=== PATIENT | female | born 1970 | race Caucasian/White ===

== ENCOUNTER 2017-02-09 16:54 | Day surgery (SDC) | payer OTHER ==
[~2017-02-09 16:54] MED LIST: HYDROCODONE/APAP 5/325 TAB PO SCH
[2017-02-09] MEDS ORDERED: NS 1,000 ML IV ONE ×2 (17:25→18:46)
--- NOTE | 2017-02-09 17:30 | EDPHY ---
General - History Smoking Status: Never smoked Narrative: CHIEF COMPLAINT: Right lower quadrant abdominal pain HISTORY OF PRESENT ILLNESS: Patient complains of sudden onset of right lower quadrant abdominal pain this afternoon after yoga. She says it started in the right lower back but now is present primarily in the right lower quadrant. It is severe, 10/10 pain. Worse with any kind of palpation or movement. Radiates to the abdomen and periumbilical region. Nausea but no vomiting. Subjective fever. No chills. No diaphoresis. She does endorse anorexia. She has no vaginal bleeding or discharge. No flank pain. No urinary complaints. No previous abdominal surgeries other than section. Does have a history of breast cancer currently taking tamoxifen. No other associated complaints or modifying factors. PREVIOUS ABDOMINAL SURGERIES/DIAGNOSES: NPO: Solids at 2:00 p.m., small sips a liquid just prior to arrival REVIEW OF SYSTEMS: Ten systems reviewed and are negative unless otherwise noted in the HPI EXAMINATION: General Appearance: Alert, no distress, lying on her left side in obvious discomfort Head: normocephalic, atraumatic Eyes: Pupils equal and round, no conjunctival pallor or injection. EOMs intact. ENT, Mouth: Mucous membranes moist. Uvula midline. No erythema or edema. Neck: Normal inspection, supple, non-tender. No meningismus. Respiratory: Lungs are clear to auscultation Cardiovascular: Regular rate and rhythm. no murmur Gastrointestinal: Abdomen is soft. Point tenderness in RLQ. Guarding of RLQ. Negative Rovsing. No tympany or rigidity. No CVA tenderness Back: non-tender, no bony abnormalities Neurological: A&O, nonfocal, normal gait Skin: Warm and dry, no rash Extremities: Nontender, no pedal edema Psychiatric: Mood and affect normal DIFFERENTIAL DIAGNOSES: Including but not limited to acute appendicitis, appendicitis, colitis, diverticulitis, torsion, ovarian cysts MDM: Right lower quadrant abdominal pain that started acutely this afternoon around 1 :30 p.m.. She does have guarding of the abdomen in the right lower quadrant. This does encroach upon to the pelvic region of the body. Given this and the severity of her pain, I have ordered CT scan abdomen pelvis as well as ultrasound to rule out torsion. 6:35 p.m. Notified by radiologist Dr. Nabor Bah that there is an acute torsion of the right ovary. Measurements of 9.1 x 6.1 x 5.7 with no flow. Scant fluid noted. I immediately contacted on-call translator/interpreter for emergent consultation 6:42 p.m. I have spoken with translator/interpreter Dr. Champion. She is informed of the ultrasound findings of acute torsion. She informed me that she will see the patient within 15 minutes in the emergency department. I have informed the patient of this ultrasound finding as well as our immediate involvement of Gynecology due to the emergent nature of this finding. She is resting comfortably with pain improving after the morphine. No vomiting. Vital signs stable laboratory studies are stable. 7:00 p.m. Patient has been evaluated by Dr. Champion in the emergency department. She is planning for operative intervention. She remains hemodynamically stable. 8:40 p.m. Patient is still in the emergency department awaiting surgical intervention. She remains hemodynamically stable. We have provided 2 L IV fluid resuscitation as well as ongoing pain medication as needed. She has been admitted to Dr. Champion. She is pending transportation to the OR ED Precautions: Worsening pain. Fever. Bloody stools. Bloody emesis. Constipation or diarrhea. SUPERVISION: This patient was independently evaluated without direct examination by the attending physician. Case was discussed with attending physician. Emergent OB Gyne consult with Dr. Champion (Rg Masters) Discussion: The patient wasevaluatedand managed by themidlevel provider. Idiscussed the patient's presentation and course with thephysicianassistantor nurse practitionerand agree with theevaluation. My co-signature indicates that I have reviewed this chart and I agree with the findings and plan of care as documented. I am the secondary supervisingphysician. (Kalyani Quijano) - Objective Vital Signs: Initial Vital Signs Temperature (C) 37 C 02/09/17 17:05 Heart Rate 77 02/09/17 17:05 Respiratory Rate 18 02/09/17 17:05 Blood Pressure 100/79 02/09/17 17:05 O2 Sat (%) 100 02/09/17 17:05 O2 Delivery Mode Room Air Allergies/Adverse Reactions: No Known Allergies Allergy (Verified 02/09/17 17:03) Home Medications: Medication Instructions Recorded Cholecalciferol Vit D3 [Vitamin D3 2,000 units PO DAILY 04/03/13 1000 units (OTC)] Herbals/Supplements -Info Only 1 each PO AD 04/03/13 Ibuprofen [Motrin 200 mg (OTC)] 400 mg PO BID PRN 04/03/13 Levothyroxine [Synthroid 75 mcg 75 mcg PO DAILY06 02/09/17 (*)] [place]-3 Fatty Acids [Fish Oil 1000 1,000 mg PO DAILY 02/09/17 mg (*)] Tamoxifen Citrate 20 mg PO HS 02/09/17 Laboratory Results: Laboratory Results 02/09/17 17:40 02/09/17 17:40 Medications Given: Discontinued Medications Hydromorphone HCl (Dilaudid) 0.5 mg IVP ONCE ONE Stop: 02/09/17 20:07 Last Admin: 02/09/17 20:24 Dose: 0.5 mg Hydromorphone HCl (Dilaudid) 0.5 mg IVP EDNOW ONE Stop: 02/09/17 20:10 Last Admin: 02/09/17 20:32 Dose: Not Given Sodium Chloride (Ns) 1,000 mls @ 0 mls/hr IV ONCE ONE PRN Reason: Wide Open Stop: 02/09/17 17:26 Last Admin: 02/09/17 17:57 Dose: 1,000 mls Sodium Chloride (Ns) 1,000 mls @ 0 mls/hr IV ONCE ONE PRN Reason: Wide Open Stop: 02/09/17 18:47 Last Admin: 02/09/17 18:58 Dose: 1,000 mls Morphine Sulfate (Morphine) 4 mg IVP EDNOW ONE Stop: 02/09/17 17:32 Last Admin: 02/09/17 17:57 Dose: 4 mg Ondansetron HCl (Zofran) 4 mg IVP EDNOW ONE Stop: 02/09/17 17:32 Last Admin: 02/09/17 17:57 Dose: 4 mg Departure - Departure Disposition: [facility] Clinical Impression: Torsion of ovary Condition: Good
[2017-02-09] MEDS ORDERED: ONDANSETRON 4 MG/2 ML VIAL IVP ONE (17:31)
[2017-02-09 18:07] LABS: % IMMATURE GRANULYOCYTES 0.2 % (0.0-1.1); ABSOLUTE IMMATURE GRANULOCYTES 0.01 10^3/uL (0.00-0.10); ADD DIFF? NO; ADD MORPH? NO; ADD SCAN? NO; ATYPICAL LYMPHOCYTE FLAG 10 (0-99); FRAGMENT RBC FLAG 0 (0-99); HEMATOCRIT 39.8 % (38.0-47.0); HEMOGLOBIN 13.5 g/dL (12.6-16.3); LEFT SHIFT FLG 0 (0-99); LIPEMIA HEMOLYSIS FLAG 90 (0-99); MEAN CELL HEMOGLOBIN 31.6 pg (27.9-34.1); MEAN CELL HEMOGLOBIN CONCENTR. 33.9 g/dL (32.4-36.7); MEAN CELL VOLUME 93.2 fL (81.5-99.8); MEAN PLATELET VOLUME 10.5 fL (8.7-11.7); PLATELET CLUMPS FLAG 10 (0-99); PLATELET COUNT 207 10^3/uL (150-400); RED BLOOD CELL COUNT 4.27 10^6/uL (4.18-5.33); RED CELL DISTRIBUTION WIDTH 12.4 % (11.5-15.2)
[2017-02-09 18:14] LABS: APTT 24.1 SEC (23.0-38.0); PROTIME(PATIENT) 13.1 SEC (12.0-15.0)
[2017-02-09 18:24] LABS: COLOR YELLOW; LEUKOCYTE ESTERASE,URINE NEGATIVE (NEGATIVE); NITRITE,URINE NEGATIVE (NEGATIVE)
[2017-02-09 18:25] LABS: ALANINE AMINOTRANSFERASE 30 IU/L (9-52); ALBUMIN 4.6 g/dL (3.5-5.0); ALKALINE PHOSPHATASE 50 IU/L (38-126); ANION GAP 14 mEq/L (8-16); ASPARTATE AMINOTRANSFERASE 44 IU/L (14-46); BILIRUBIN,TOTAL 0.9 mg/dL (0.1-1.4); BILIRUBIN-CONJUGATED 0.6 mg/dL (0.0-0.5); BILIRUBIN-UNCONJUGATED 0.3 mg/dL (0.0-1.1); CALCIUM 9.3 mg/dL (8.5-10.4); CARBON DIOXIDE 18 mEq/l (22-31); CHLORIDE 106 mEq/L (97-110); CREATININE 0.8 mg/dL (0.6-1.0); GLOMERULAR FILTRATION RATE > 60; GLUCOSE 99 mg/dL (70-100); POTASSIUM 3.7 mEq/L (3.5-5.2); SODIUM 138 mEq/L (134-144); TOTAL PROTEIN 7.3 g/dL (6.3-8.2)
[2017-02-09] MEDS ORDERED: IOPAMIDOL (ISOVUE-300) 100 ML BTL IV ONE (18:34)
[2017-02-09] MEDS ORDERED: HYDROmorphONE/DILAUDID 1 MG/ML SYR IVP ONE ×2 (20:06→20:09)
[2017-02-09] MEDS ORDERED: BUPIVACAINE 0.25% 30 ML SDV ONE ×3 (20:24→21:12)
[2017-02-09 21:05] VITALS: BP 113/64; PULSE 84; RESP 16; TEMP 99.5; O2SAT 97
[2017-02-09] MEDS ORDERED: fentaNYL 100 MCG/2 ML INJ ONE ×3 (21:26→23:06)
[2017-02-09] MEDS ORDERED: PROPOFOL/EMULSION 500 MG/50 ML BOTTLE IV ONE (21:26)
--- NOTE | 2017-02-09 21:30 | GHP ---
[f rep st] HISTORY AND PHYSICAL DATE OF ADMISSION: 02/09/2017 PREOPERATIVE DIAGNOSIS: Suspected ovarian torsion. INDICATIONS: Patient is a 46-year-old, 1, para 1-0-0-1 who went to yoga this morning and solis d some mild discomfort in the middle of [place] at the end of class. She went with her friend to [place] and then got home and had increasing pain. She took her dog for a walk and had significant inc rease in pain almost to the point of not being able to walk home. She decided to take a shower, and standing up caused excruciating pain, so the patient came into the emergency room with her . A pelvic ultrasound was performed, which showed a normal size uterus with right ovary measuring 9 x 6 x 5.7 cm with a 4.7 cm and a 3.4 cm simple-appearing cyst. No flow is noted to this right ovary . The left ovary was visualized and is unremarkable. Management options were reviewed with the pat ient. The patient had return of significant amount of pain after a short period of time, and decisi on has been made to proceed with a laparoscopy with right salpingectomy and possible ovarian cystect justin. The patient has been properly counseled and consented. MEDICAL HISTORY: Breast cancer and subacute thyroiditis. MEDICATIONS: Levothyroxine 75 mcg a day, Tamoxifen daily, and multiple supplements including fish o il, evening primrose oil, vitamin D, calcium with vitamin C, magnesium and a multivitamin. SURGICAL HISTORY: section in 2003, bilateral mastectomy in 2012, plastic surgery on her no se after a dog bite as a child. ALLERGIES: No known drug allergies. SOCIAL HISTORY: Patient denies tobacco, alcohol, or drug use. FAMILY MEDICAL HISTORY: Significant for breast cancer. 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 She still has regular periods. She does have a history of a previous low transverse section for arrest of descent. The patient's most rec ent pelvic exam was in November. PHYSICAL EXAMINATION: VITAL SIGNS: Stable. GENERAL APPEARANCE: She is alert and oriented x3. HE ART: Heart rate is regular, regular. LUNGS: Clear to auscultation bilaterally. ABDOMEN: Soft, n ondistended, nontender. PELVIC: Difficult due to very small, tight pelvic arch but a mobile uterus , and there is some right adnexal fullness. Pelvic ultrasound of the uterus measures 11 x 6 x 6 cm with an endometrium measuring 1.6 cm. There are 2 cysts in the enlarged right ovary. One is 4.7, the other is 3.4 cm, and the overall ovary ashley sures 9.1 x 6.1 x 5.7 with no flow to that ovary. The left ovary is unremarkable. ASSESSMENT AND PLAN: A 46-year-old, 1, para 1-0-0-1 who has a presumptive right ovarian tor antione. We will proceed with a laparoscopic ovarian cystectomy and possible oophorectomy and salpinge ctomy. Risks and benefits have been reviewed with the patient, and the patient has been properly co nsented. /[id number]/MODL
[2017-02-09] MEDS ORDERED: SUGAMMADEX SODIUM 200 MG/2 ML VIAL IVP ONE (22:20)
[2017-02-09] MEDS ORDERED: SILVER NITRATE APPLICATOR 1 APPL TP ONE (22:30)
[2017-02-09] MEDS ORDERED: MEPERIDINE 25 MG/ML SYR ONE (22:44)
--- NOTE | 2017-02-09 22:46 | POSTOPPROG ---
Post Op Note Date of Operation: 02/09/17 Surgeon: Miranda Champion Nurse Specialist: mercedez stark Anesthesiologist: manas Anesthesia: GET(General Endotracheal) Pre-op Diagnosis: suspected ovarian torsion Post-op Diagnosis: right ovarian torsion Procedure: laparoscopic right salpingoophrectomy Inf/Abcess present in the surg proc area at time of surgery?: No EBL: Minimal Specimen(s): right ovary and tube
[2017-02-09] MEDS ORDERED: KETOROLAC 30 MG/1 ML SDV ONE (22:49)
--- NOTE | 2017-02-09 23:44 | GOP ---
[f rep st] OPERATIVE REPORT DATE OF OPERATION: 02/09/2017 SURGEON: Miranda Champion DO LAY OUT INSPECTOR: HUNTER Jones. ANESTHESIA: General with endotracheal tube. ANESTHESIOLOGIST: Dr. Sim. PREOPERATIVE DIAGNOSIS: Suspected ovarian torsion. POSTOPERATIVE DIAGNOSIS: Suspected ovarian torsion. PROCEDURE PERFORMED: Laparoscopic right salpingo-oophorectomy. FINDINGS: 1. Mobile uterus which is slightly enlarged in size and very well suspended and right adnexal fulln ess. 1. Laparoscopic findings: Adhesion between the anterior wall of the uterus and the anterior abdomi nal cavity, normal-appearing appendix, right torsed ovary and tube which was enlarged and grossly di scolored. 2. SPECIMENS: Right ovary and tube. ESTIMATED BLOOD LOSS: 10 mL. INDICATIONS: Patient is a 46-year-old, 1, para 1-0-0-1 who had sudden onset of severe abdom inal right lower quadrant pain this afternoon. It did ebb and flow, but the patient presented to [facility] emergency room. An ultrasound was performed which showed a torsed right ovary. Management option s were reviewed with the patient and her . Decision was made to proceed with a laparoscopic salpingectomy and oophorectomy if indicated. Risks and benefits of the procedure were reviewed with the patient, and the patient was properly consented. DESCRIPTION OF PROCEDURE: Patient was taken to the operating room with intravenous fluids in place. She was then placed on the operating room table in the dorsal supine position where general endotr acheal tube anesthesia was obtained. She was then repositioned into the dorsal lithotomy position w ith the [facility] and prepped and draped in the normal sterile fashion. Exam under anesthes ia revealed a well-suspended uterus and a narrow pelvis and some right adnexal fullness. A Pedro ca theter was then placed. A speculum was then placed in the patient's vagina. A single-tooth tenacul um was used to grasp the anterior lip of the cervix. An acorn uterine manipulator was then introduc ed. Attention was then turned to the patient's abdomen where a 5 mm skin incision was then made in the umbilicus and the Optiview was then advanced into the patient's abdomen under direct visualizati on with the Optiview. The abdomen was then insufflated with CO2 gas until an adequate pneumoperiton eum was achieved. The ovary was noted to be immediately visible and enlarged and purple. A second skin incision was then made in the left lower quadrant. This was a 10 mm skin incision. A 10 mm tro car was then advanced into the patient's abdomen under direct visualization. A blunt probe was then introduced, and the ovary was noted to be torsed and necrotic. The peristalsing ureter was noted t o be remote from the ovary site. Two twists of the ovary were noted. A LigaSure device was then us ed to clamp, cauterize, and transect the utero-ovarian ligament and the right infundibulopelvic liga ment. Again, visualization of a peristalsing ureter was visualized throughout the case. Following completion of resection of the ovary, an EndoCatch bag was then introduced through the 10 mm skin in cision, and the ovarian cyst was withdrawn in pieces with the EndoCatch bag, and the entire specimen was sent off to Pathology. The pelvis was irrigated of all clots and debris. The left ovary was unremarkable. The upper abdom en was explored which was unremarkable. The appendix was unremarkable. There was an adhesion betwe en the anterior surface of the uterus and the anterior abdominal wall which was clamped, cauterized, and transected with the LigaSure. Hemostasis of the pedicles was ensured. The 10 mm trocar was th en removed from the patient's abdomen, and the fascia was grasped with a Miryam's, and the fascia wa s closed with 0 Vicryl in a [id number] stitch. The CO2 gas was then turned off, and the top of the umbilicus port was then removed, and CO2 gas was expressed from the patient's abdomen. The tro car was then withdrawn. The skin of both incisions was then closed with 4-0 Monocryl, and the abdom en was cleaned and Band-Aids were applied to the incisions. The single-tooth tenaculum was removed from the anterior lip of the cervix, and bleeding was resolved with pressure, and the instruments we re then removed from the patient's vagina. Sponge, lap, and needle counts were correct x2. Patient was transferred to recovery room in stable condition. SURGEON: Dr. Champion. /[id number]/MODL
[2017-02-10] MEDS ORDERED: HYDROmorphONE/DILAUDID 1 MG/ML SYR ONE (00:04)
[2017-02-10] MEDS ORDERED: ONDANSETRON 4 MG/2 ML VIAL ONE (00:23)
== END 2017-02-10 01:00 | disposition home or self-care (01) ==
LOC: UNDOADMIN 19:01 → FSGY 21:15
PROVIDERS: ATTEND Obstetrics & Gynecology
PROC: 0UT04ZZ Resection of Right Ovary, Percutaneous Endoscopic Approach (ICD-10-PCS; principal; 2017-02-09 21:00)
PROC: 0UT54ZZ Resection of Right Fallopian Tube, Percutaneous Endoscopic Approach (ICD-10-PCS; principal; 2017-02-09 21:00)
DX: N83.53 Torsion of ovary, ovarian pedicle and fallopian tube (principal)
CPT/HCPCS: 82947-QW; 96374; J1170; J1885; J2405; J2704; J3010; Q9967

== ENCOUNTER → 2017-07-30 | Outpatient (CLI) | payer OTHER | LOC: CIMAGING 17:24 | PROVIDERS: ATTEND Obstetrics & Gynecology | DX: N83.202 Unspecified ovarian cyst, left side (principal); Z09 Encounter for follow-up examination after completed treatment for conditions other than malignant neoplasm; Z90.721 Acquired absence of ovaries, unilateral | CPT/HCPCS: 76856-PO ==

== ENCOUNTER 2017-07-31 14:31 | Emergency (ER) | payer OTHER ==
[2017-07-31] MEDS ORDERED: KETOROLAC 30 MG/1 ML SDV IVP ONE (14:49)
--- NOTE | 2017-07-31 15:00 | EDPHY ---
H & P Stated Complaint: LLQ abd pain, hx ovarian torsion on R, feels same - Personal History Current Tetanus Diphtheria and Acellular Pertussis (TDAP): Unsure - Medical/Surgical History Hx Asthma: No Hx Chronic Respiratory Disease: No Hx Diabetes: No Hx Cardiac Disease: No Hx Renal Disease: No Hx Cirrhosis: No Hx Alcoholism: No Hx HIV/AIDS: No Hx Splenectomy or Spleen Trauma: No Other PMH: breast cancer, ovarian torsion, csection, thyroiditis - Social History Smoking Status: Never smoked <Wil Child - Last Filed: 07/31/17 14:45> <Kalyani Quijano - Last Filed: 07/31/17 17:12> Time Seen by Provider: 07/31/17 14:43 HPI/ROS: CHIEF COMPLAINT: Left-sided abdominal pain HISTORY OF PRESENT ILLNESS: The patient is a 46 y/o female with a history of an ovarian torsion arriving with her family member complaining of left-sided abdominal pain onset yesterday. She was evaluated by her OBGYN yesterday and an ultrasound showed a large left ovary measuring 6cm in length with two cysts. Her pain changed over night and became more severe. Her pain now radiates through to her back and feels exactly the same as her prior ovarian torsion in January 2017 that required surgery. She denies associated fever, vomiting, diarrhea, or other symptoms. She took 400mg Advil around 12:30 without alleviation of her pain. Her last PO intake was at 10:30, about 5.5 hours ago. REVIEW OF SYSTEMS: A 10 point review of systems was performed and is negative with the exception of the elements mentioned in the history of present illness. PHYSICAL EXAM: General Appearance: Alert, well hydrated, appropriate, and non-toxic appearing. Head: Atraumatic without scalp tenderness or obvious injury Eyes: Pupils equal, round, reactive to light and accommodation, EOMI, no trauma , no injection. Nose: Atraumatic, no rhinorrhea, clear. Throat: Mucus membranes moist. Neck: Supple, non-tender, no lymphadenopathy. Respiratory: No retractions, no distress, no wheezes, and no accessory muscle use. Lungs are clear to auscultation bilaterally. Cardiovascular: Regular rate and rhythm, no murmurs, rubs, or gallops. Good capillary refill all extremities. Gastrointestinal: Abdomen is soft, left lower abdominal tenderness, non- distended, no masses, no rebound, no guarding, no peritoneal signs. Musculoskeletal: Normal active ROM of all extremities, atraumatic. Neurological: Alert, appropriate, and interactive. Nonfocal neuro exam. Skin: No rashes, good turgor, no nodules on palpation. PAST MEDICAL HISTORY: Ovarian torsion, breast cancer, thyroiditis PAST SURGICAL HISTORY: , bilateral mastectomy 2012, ovarian torsion surgery January 2017 SOCIAL HISTORY: Family member at bedside. Nonsmoker. No alcohol use. DIAGNOSTIC CARDIAC SONOGRAPHER: Dr. Champion DIFFERENTIAL DIAGNOSIS: The differential diagnosis for the patient's abdominal pain included but was not limited to ovarian cyst, pelvic inflammatory disease, ovarian torsion, urinary tract infection, ectopic , cholecystitis, and appendicitis. MEDICAL DECISION MAKING: This is a 46 y/o female with a history of a right ovarian torsion requiring surgery in January 2017 who presents with a 1-day history of LLQ pain worsening early this morning and that feels exactly the same as her prior torsion. An US yesterday showed a large left ovary with two cysts. Dr. Vogt, DIAGNOSTIC CARDIAC SONOGRAPHER covering for Dr. Champion, is also assessing patient in the room with me. The patient has LLQ tenderness, but otherwise has a normal exam. Plan for IV, labs, pelvic US, and symptom management. 30mg IV Ketoralac administered. Dr. Vogt, DIAGNOSTIC CARDIAC SONOGRAPHER [phone] 1500: Patient care transferred to Dr. Quijano at shift change pending US results. (Wil Child) Constitutional: Initial Vital Signs Temperature (C) 37.4 C 07/31/17 14:36 Heart Rate 74 07/31/17 14:36 Respiratory Rate 18 07/31/17 14:36 Blood Pressure 112/73 07/31/17 14:36 O2 Sat (%) 99 07/31/17 14:36 O2 Delivery Mode Room Air Allergies/Adverse Reactions: No Known Allergies Allergy (Verified 02/09/17 17:03) Home Medications: Medication Instructions Recorded Cholecalciferol Vit D3 [Vitamin D3 2,000 units PO DAILY 04/03/13 1000 units (OTC)] Herbals/Supplements -Info Only 1 each PO AD 04/03/13 Ibuprofen [Motrin 200 mg (OTC)] 400 mg PO BID PRN 04/03/13 Levothyroxine [Synthroid 75 mcg 75 mcg PO DAILY06 02/09/17 (*)] [place]-3 Fatty Acids [Fish Oil 1000 1,000 mg PO DAILY 02/09/17 mg (*)] Tamoxifen Citrate 20 mg PO HS 02/09/17 Medical Decision Making <Wil Child - Last Filed: 07/31/17 14:45> - Diagnostics Imaging: Discussed imaging studies w/ house calls nurse Radiologist <Kalyani Quijano - Last Filed: 07/31/17 17:12> - Diagnostics Imaging Results: Imaging Impressions Pelvic/Renal Ultrasound 07/31/17 14:43 Impression: 1. Status post right oophorectomy. 2. Left ovarian enlargement, with a stable dominant simple cyst and a complex cyst which now contains a fluid/hemorrhage level. There is no evidence of torsion. Findings were discussed with Kalyani Quijano MD at 16:15, on 07/31/2017. Other Provider: Assumed care of patient from at shift change. 1620: Spoke with radiologist, he reports there is no torsion of her left ovary. Reassessed patient and discussed imaging results. Her pain was well controlled with Toradol but has since returned. 0.5mg IV Dilaudid administered. Dr. Vogt, OB-DIAGNOSTIC CARDIAC SONOGRAPHER, will continue to consult on this patient and discuss further care options. 1656: Consulted with Dr. Vogt regarding the patients care. Reassessed patient and discussed return precautions. Patient is comfortable with this plan. (Kalyani Quijano) - Data Points Laboratory Results: Laboratory Results 07/31/17 15:00 07/31/17 15:00 07/31/17 07/31/17 07/31/17 15:54 15:00 15:00 WBC RBC Hgb Hct MCV MCH MCHC RDW Plt Count MPV Neut % (Auto) Lymph % (Auto) [place] % (Auto) Eos % (Auto) Baso % (Auto) Nucleat RBC Rel Count Absolute Neuts (auto) Absolute Lymphs (auto) Absolute Monos (auto) Absolute Eos (auto) Absolute Basos (auto) Absolute Nucleated RBC Immature Gran % Immature Gran # Sodium 136 mEq/L mEq/L (134-144) Potassium 4.0 mEq/L mEq/L (3.5-5.2) Chloride 104 mEq/L mEq/L (97-110) Carbon Dioxide 20 mEq/l L mEq/l (22-31) Anion Gap 12 mEq/L mEq/L (8-16) BUN 11 mg/dL mg/dL (7-23) Creatinine 0.9 mg/dL mg/dL (0.6-1.0) Estimated GFR > 60 Glucose 89 mg/dL mg/dL (70-100) Calcium 9.4 mg/dL mg/dL (8.5-10.4) Beta HCG, Qual NEGATIVE Patient ABO/Rh O POSITIVE 07/31/17 15:00 WBC 5.84 10^3/uL 10^3/uL (3.80-9.50) RBC 4.35 10^6/uL 10^6/uL (4.18-5.33) Hgb 13.7 g/dL g/dL (12.6-16.3) Hct 40.6 % % (38.0-47.0) MCV 93.3 fL fL (81.5-99.8) MCH 31.5 pg pg (27.9-34.1) MCHC 33.7 g/dL g/dL (32.4-36.7) RDW 12.8 % % (11.5-15.2) Plt Count 205 10^3/uL 10^3/uL (150-400) MPV 9.8 fL fL (8.7-11.7) Neut % (Auto) 70.7 % % (39.3-74.2) Lymph % (Auto) 18.0 % % (15.0-45.0) [place] % (Auto) 10.1 % % (4.5-13.0) Eos % (Auto) 0.7 % % (0.6-7.6) Baso % (Auto) 0.5 % % (0.3-1.7) Nucleat RBC Rel Count 0.0 % % (0.0-0.2) Absolute Neuts (auto) 4.13 10^3/uL 10^3/uL (1.70-6.50) Absolute Lymphs (auto) 1.05 10^3/uL 10^3/uL (1.00-3.00) Absolute Monos (auto) 0.59 10^3/uL 10^3/uL (0.30-0.80) Absolute Eos (auto) 0.04 10^3/uL 10^3/uL (0.03-0.40) Absolute Basos (auto) 0.03 10^3/uL 10^3/uL (0.02-0.10) Absolute Nucleated RBC 0.00 10^3/uL 10^3/uL (0-0.01) Immature Gran % 0.0 % % (0.0-1.1) Immature Gran # 0.00 10^3/uL 10^3/uL (0.00-0.10) Sodium Potassium Chloride Carbon Dioxide Anion Gap BUN Creatinine Estimated GFR Glucose Calcium Beta HCG, Qual Patient ABO/Rh Medications Given: Discontinued Medications Acetaminophen (Tylenol) 1,000 mg PO EDNOW ONE Stop: 07/31/17 16:28 Last Admin: 07/31/17 16:56 Dose: 1,000 mg Hydromorphone HCl (Dilaudid) 0.5 mg IVP EDNOW ONE Stop: 07/31/17 16:28 Last Admin: 07/31/17 17:08 Dose: Not Given Ketorolac Tromethamine (Toradol) 30 mg IVP EDNOW ONE Stop: 07/31/17 14:50 Last Admin: 07/31/17 15:00 Dose: 30 mg Departure <Wil Child A - Last Filed: 07/31/17 14:45> <Kalyani Quijano - Last Filed: 07/31/17 17:12> - Departure Disposition: Home, Routine, Self-Care Clinical Impression: Hemorrhagic cyst of left ovary, Left adnexal tenderness Condition: Good Instructions: Ovarian Cyst (ED) Additional Instructions: 1. I recommend Ibuprofen (Motrin,Advil) or Naproxen Sodium (Aleve) for pain and anti-inflammatory effects. You may take either one, but do not take both. You may also take Tylenol if needed. Your dose is: Ibuprofen 600mg every 6-8 hours with food. OR Naproxen Sodium (Aleve) 220mg every [address] Vogt, OB-DIAGNOSTIC CARDIAC SONOGRAPHER, this weekend if you experience more pain or have any concerns. 3. Return to the ED if you experience fever, increased bleeding or abdominal pain, or other worsening of your symptoms. Referrals: EPTAR HERNÁNDEZ [Primary Care Provider] - As per Instructions Nahum Vogt MD [Medical Doctor] - As per Instructions Report Scribed for: Wil Child Report Scribed by: Marcela Christianson Date of Report: 07/31/17 Time of Report: 15:01 <Wil Child - Last Filed: 07/31/17 14:45>
[2017-07-31 15:09] LABS: ADD DIFF? NO; ADD MORPH? NO; ADD SCAN? NO; ATYPICAL LYMPHOCYTE FLAG 0 (0-99); FRAGMENT RBC FLAG 0 (0-99); HEMATOCRIT 40.6 % (38.0-47.0); HEMOGLOBIN 13.7 g/dL (12.6-16.3); LEFT SHIFT FLG 0 (0-99); LIPEMIA HEMOLYSIS FLAG 80 (0-99); MEAN CELL HEMOGLOBIN 31.5 pg (27.9-34.1); MEAN CELL HEMOGLOBIN CONCENTR. 33.7 g/dL (32.4-36.7); MEAN CELL VOLUME 93.3 fL (81.5-99.8); MEAN PLATELET VOLUME 9.8 fL (8.7-11.7); PLATELET CLUMPS FLAG 0 (0-99); PLATELET COUNT 205 10^3/uL (150-400); RED BLOOD CELL COUNT 4.35 10^6/uL (4.18-5.33); RED CELL DISTRIBUTION WIDTH 12.8 % (11.5-15.2)
[2017-07-31 15:28] LABS: ANION GAP 12 mEq/L (8-16); CALCIUM 9.4 mg/dL (8.5-10.4); CARBON DIOXIDE 20 mEq/l (22-31); CHLORIDE 104 mEq/L (97-110); CREATININE 0.9 mg/dL (0.6-1.0); GLOMERULAR FILTRATION RATE > 60; GLUCOSE 89 mg/dL (70-100); SODIUM 136 mEq/L (134-144)
[2017-07-31 16:00] VITALS: PULSE 85; RESP 16
[2017-07-31] MEDS ORDERED: HYDROmorphONE/DILAUDID 1 MG/ML INJ IVP ONE (16:27)
[2017-07-31] MEDS ORDERED: ACETAMINOPHEN 500 MG TAB PO ONE (16:27)
[2017-07-31] MEDS ORDERED: HYDROCOD/APAP 5/325 PREPACK#6 BTL TAKEHOME ONE (16:57)
[2017-07-31 17:33] VITALS: BP 109/69; TEMP 99; O2SAT 97
--- NOTE | 2017-07-31 17:55 | PDCONSULT ---
Technical Service Representative Note: GYNECOLOGY CONSULT NOTE DATE OF CONSULTATION: 07/31/2017 REQUESTING SERVICE: EMERGENCY DEPARTMENT CHIEF COMPLAINT: LLQ PAIN HISTORY OF PRESENT ILLNESS: 46 year-old WF with a history of right ovarian torsion (diagnosed in January 2017 and treated with laparoscopic right salpingo-oophorectomy) presented to ED this afternoon with complaint of left- sided lower quadrant pain which started yesterday. She reports the pain as 8/10 and radiates to her left flank and back. She was evaluated yesterday for pain and an US was performed which showed her left ovary measuring 6 cm in diameter and containing two cysts. She denies fever, chills, vomiting, diarrhea or constipation. She denies heavy vaginal bleeding. She took Advil today at 1230PM without alleviation of her pain. PAST MEDICAL HISTORY: Breast cancer, subacute thyroiditis, right ovarian torsion. MEDICATIONS: Levothyroxine 75 mcg, Tamoxifen (since 2012), multiple supplements including fish oil, evening primrose oil, vitamin D, calcium, vitamin C, and a multivitamin. PAST SURGICAL HISTORY: Plastic surgery (nose) for repair s/p dog bite (13 years old), bilateral mastectomy (2012), laparoscopic salpingo-oophorectomy (01/2017). ALLERGIES: No known drug allergies. 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 FAMILY HISTORY: Breast cancer. POOL COORDINATOR HISTORY: She is a 1 para 1-0-0-1. She still has regular periods. She does have a history of previous Pfannenstiel incision after delivery performed for arrest of descent. 9 cm torsed ovary diagnosed in January 2017 and removed after found to be necrotic with laparoscopic RSO. PHYSICAL EXAM: Vital signs stable. GENERAL APPEARANCE: Patient is awake, alert, and oriented x3. HEART: regular rate and rhythm. LUNGS: clear to auscultation bilaterally. ABDOMEN: bowel sounds present, soft, left lower quadrant tenderness to deep palpation, non-distended, no obvious masses, no rebound, no guarding, no peritoneal signs. MUSCULOSKELETAL: normal ROM, no excessive swelling or edema in lower extremities. SKIN: No rashes, good turgor, no obvious lesions. PELVIC ULTRASOUND: Transabdominal and transvaginal images obtained. Uterus is normal size, shape, and position (9.6 x 6.3 x 5.4 cm). Right adnexal structures are surgically absent. Left ovary is enlarged (5.5 x 4.3 x 5.5 cm) and contains a dominant simple cyst and a complex hemorrhagic cyst. There is no evidence of torsion to left ovary (arterial and venous flow were observed by Doppler US with a relative index measuring 0.41). There was small free fluid in pelvis. ASSESSMENT: 46 yo WF with enlarged (5.5 cm) left ovary with symptomatic hemorrhagic cyst; good blood flow noted to left ovary. PLAN: After discussing diagnosis and management options (including conservative management with pain control, versus immediate surgery, versus possible future elective surgery, including the risks and benefits of each option, patient preferred conservative management at this time. Patient will be discharged home with PO pain medication (prescribed by ED physician). She will have close follow -up with [facility]. She was given strict precautions to contact me or hospital this weekend if her pain or symptoms worsen.
== END 2017-07-31 17:33 | disposition home or self-care (01) ==
DX: N83.202 Unspecified ovarian cyst, left side (principal); Z85.3 Personal history of malignant neoplasm of breast
CPT/HCPCS: 96374; J1170; J1885

== ENCOUNTER → 2017-08-13 | Day surgery (SDC) | payer OTHER ==
[~2017-08-13] MED LIST changes: +BUPIVACAINE 0.25% 30 ML SDV ONE; -HYDROCODONE/APAP 5/325 TAB PO SCH; +HYDROmorphONE/DILAUDID 1 MG/ML INJ IVP PRN; +KETOROLAC 30 MG/1 ML SDV ONE; +LR 1,000 ML IV ONE; +MEPERIDINE 25 MG/ML SYR IVP PRN; +MIDAZOLAM 2 MG/2 ML VIAL IVP ONE; +MIDAZOLAM 2 MG/2 ML VIAL ONE; +NALOXONE HCL 0.4 MG/ML INJ IVP PRN; +ONDANSETRON 4 MG/2 ML VIAL IVP PRN; +ONDANSETRON 4 MG/2 ML VIAL ONE; +PROPOFOL 200 MG/20 ML VIAL ONE; +SCOPOLAMINE HYDROBROMIDE 1 MG/3 DAYS PATCH TD ONE; +SUCCINYLCHOLINE CHLORIDE*ANESTHESIA ONLY*200 MG/10 ML SYR IVP ONE; +fentaNYL 100 MCG/2 ML INJ ONE
--- NOTE | 2017-08-13 15:07 | GHP ---
[f rep st] PREOP HISTORY AND PHYSICAL DATE OF PLANNED PROCEDURE: 08/13/2017 PLANNED PROCEDURE: Laparoscopy with reduction of ovarian torsion and possible salpingo-oophorectomy. INDICATIONS: Patient is a 46-year-old 1 para 1-0-0-1, who was diagnosed with breast cancer in 2012. She has been on tamoxifen since that time. Patient was diagnosed with ovarian torsion in January 2017. She underwent a diagnostic laparoscopy and right salpingo-oophorectomy for that ovarian torsion as the ovary was noted to be necrotic. Patient had been doing fine postoperatively until she had another episode of pain on the left side on 2016. She went in and her left ovary was noted to be measuring 5.5 x 4.3 x 5.5 cm with a dominant simple cyst and a complex hemorrhagic cyst. Her pain resolved, and there was no acute evidence of torsion. I did talk to the patient a week or so later, and her pain had substantially resolved. She was scheduled to see me in 3 days to discuss long-term management, but called today complaining of sudden onset of severe pain in her left lower quadrant. She came in and had a pelvic ultrasound done in our office, which showed a normal uterus and an ovary which was enlarged with 4 cystic masses, totaling 7 x 6 x 5 cm. There was flow seen to the left ovary at that time. We had a long discussion about management options. By the time I saw the patient after her ultrasound, she stated that her pain had gone from an 8 to a 5, and she was able to stand and felt comfortable. We discussed proceeding with surgery versus expectant management and following up Wednesday as planned to discuss long- term management versus expectant management. Patient was electing to proceed with followup appointment on Wednesday and avoiding surgery; however, she got longterm home and started having severe pain which is increased, and so we will proceed with a laparoscopic surgery and possible salpingo-oophorectomy versus cystectomy and reduction of torsion. The risks and benefits have been extensively reviewed with the patient, and patient will sign consent in the preop area. MEDICAL HISTORY: Significant for breast cancer and subacute thyroiditis. MEDICATIONS: Levothyroxine 75 mcg; tamoxifen; supplements including fish oil, evening Alexander oil, vitamin D, calcium, and vitamin C. SURGICAL HISTORY: section in 2003, mastectomy in 2012, plastic surgery on her nose after a dog bite as a child, laparoscopic right salpingo- oophorectomy in January 2017. ALLERGIES: No known drug allergies. SOCIAL HISTORY: Patient denies tobacco, alcohol, and drug use. FAMILY MEDICAL HISTORY: Significant for breast cancer, OBSTETRICAL AND GYNECOLOGICAL HISTORY: She is a 1 para 1-0-0-1. She has been having regular periods. She does have a history of a previous low transverse section for arrest of descent. She has no history of abnormal Pap smears. REVIEW OF SYSTEMS: 10-point review of systems is negative with the exception of nausea and substantial left lower quadrant pain. PHYSICAL EXAMINATION: VITAL SIGNS: Stable. GENERAL APPEARANCE: Alert and oriented x3. NECK: Mobile and supple. PSYCH: She has appropriate affect. HEART: Rate is regular/regular. LUNGS: Clear to auscultation bilaterally. ABDOMEN: Soft, nondistended. She does have left lower quadrant pain. MUSCULOSKELETAL: Grossly intact. NEURO: Grossly intact. PELVIC: Deferred. DIAGNOSTICS: Pelvic ultrasound as described above. ASSESSMENT AND PLAN: A 46-year-old, 1 para 1-0-0-1 with suspected left ovarian torsion with a recent history of a right ovarian torsion. Risks and benefits have been extensively reviewed with the patient, and we will proceed with a diagnostic laparoscopy and possible left salpingo-oophorectomy. /[id number]/MODL MTDD
--- NOTE | 2017-08-13 17:20 | POSTANESTH ---
Post Anesthetic Evaluation Cardiovascular Status: Normal, Stable Respiratory Status: Normal, Stable Pain Control: Adequate, Prn Tx Ordered Nausea/Vomiting Control: Adequate, Prn Tx Ordered Complications Possibly Related to Anesthesia: None Noted
--- NOTE | 2017-08-13 17:21 | PDANEPAE ---
ANE History of Present Illness ovarian torsion left ANE Past Medical History - Cardiovascular History Hx Hypertension: No Hx Arrhythmias: No Hx Chest Pain: No Hx Coronary Artery / Peripheral Vascular Disease: No Hx CHF / Valvular Disease: No Hx Palpitations: No - Pulmonary History Hx COPD: No Hx Asthma/Reactive Airway Disease: Yes Hx Recent Upper Respiratory Infection: No Hx Oxygen in Use at Home: No Hx Sleep Apnea: No Pulmonary History Comment: As a child, allergic reaction to cats - Neurologic History Hx Cerebrovascular Accident: No Hx Seizures: No Hx Dementia: No Neurologic History Comment: Migraines - Endocrine History Hx Diabetes: No - Renal History Hx Renal Disorders: No - Liver History Hx Hepatic Disorders: No - Neurological & Psychiatric Hx Hx Neurological and Psychiatric Disorders: Yes Neurological / Psychiatric History Comment: Anxiety - Cancer History Hx Cancer: Yes Cancer History Comment: Breast CA - Congenital Disorder History Hx Congenital Disorders: No - GI History Hx Gastrointestinal Disorders: No - Chronic Pain History Chronic Pain: No - Surgical History Prior Surgeries: . R ovary removed. Double mastectomy. Nasal plastic sx as child ANE Review of Systems Review of Systems: - Exercise capacity METS (RN): 5 METS ANE Patient History - Allergies Allergies/Adverse Reactions: No Known Allergies Allergy (Verified 02/09/17 17:03) - Home Medications Home Medications: Cholecalciferol Vit D3 [Vitamin D3 (*)] 2,000 units PO DAILY 04/03/13 [Last Taken 08/12/17] Herbals/Supplements -Info Only 1 each PO AD 04/03/13 [Last Taken 08/12/17] Ibuprofen [Motrin (*)] 400 mg PO BID PRN 04/03/13 [Last Taken 08/13/17 11:30] Levothyroxine [Synthroid 75 mcg (*)] 75 mcg PO DAILY06 02/09/17 [Last Taken ] [place]-3 Fatty Acids [Fish Oil 1000 mg (*)] 1,000 mg PO DAILY 02/09/17 [Last Taken 08/12/17] Tamoxifen Citrate 20 mg PO HS 02/09/17 [Last Taken 08/12/17] - NPO status NPO Since - Liquids (Date): 08/13/17 NPO Since - Liquids (Time): 11:30 NPO Since - Solids (Date): 08/13/17 NPO Since - Solids (Time): 11:30 - Smoking Hx Smoking Status: Never smoked ANE Labs/Vital Signs - Vital Signs Blood Pressure: 111/76 Heart Rate: 76 Respiratory Rate: 18 O2 Sat (%): 99 Height: 165.1 cm Weight: 61.235 kg ANE Physical Exam - Airway Neck exam: FROM Mallampati Score: Class 1 Mouth exam: normal dental/mouth exam - Pulmonary Pulmonary: no respiratory distress - Cardiovascular Cardiovascular: regular rate and rhythym - ASA Status ASA Status: II, E ANE Anesthesia Plan Anesthesia Plan: general endotracheal anesthesia
[2017-08-13] MEDS: fentaNYL 100 MCG/2 ML INJ IVP PRN ×2 (17:34→17:48)
[2017-08-13 17:45] VITALS: O2SAT 99
[2017-08-13 18:18] VITALS: BP 104/70; RESP 18
[2017-08-13 19:07] VITALS: PULSE 67; TEMP 97.7
--- NOTE | 2017-08-13 23:44 | GOP ---
[f rep st] OPERATIVE REPORT DATE OF OPERATION: 08/13/2017 SURGEON: Miranda Champion DO STUMPER FELLER: Amie Thorne MD ANESTHESIA: General endotracheal tube. ANESTHESIOLOGIST: Jesica Edwards MD PREOPERATIVE DIAGNOSIS: Suspected ovarian torsion. POSTOPERATIVE DIAGNOSIS: Suspected ovarian torsion. PROCEDURE PERFORMED: Laparoscopy with left salpingo-oophorectomy. FINDINGS: Exam under anesthesia: Mobile midposition uterus with left adnexal fullness. Laparoscopi c findings: Surgically absent right ovary. Adhesions of the anterior uterus to the anterior abdomin al wall. Torsed and necrotic left ovary and fallopian tube. SPECIMENS: Left ovary and tube. ESTIMATED BLOOD LOSS: 50 cc. INDICATIONS: Patient is a 46-year-old 1, para 1-0-0-1, who was diagnosed with breast cancer in 2012. She has been on tamoxifen since that time. She had an ovarian torsion of her right ovary i n January 2017. She underwent a diagnostic laparoscopy and right salpingo-oophorectomy for ovarian tor antione at that time. She had been fine since then until in which she had sudden onset of left lo wer quadrant pain. She went to the emergency room and was found to have an ovarian cyst which was no t torsed. Her pain resolved until this morning, where she had sudden onset of severe pain while walk ing her dog. She presented to our office and had an ultrasound which showed an enlarged left ovary, but flow was noted. She initially had severe pain but then her pain resolved, so we discussed manage ment options, and patient was going to go home and follow up on Wednesday to discuss long-term managemen t options, but patient got home and her pain substantially increased, so she returned to our office a nd we decided to proceed with surgery. Risks and benefits were reviewed with the patient. Patient h as been properly consented. DESCRIPTION OF PROCEDURE: Patient was taken to the operating room with intravenous fluids in place. She was then placed on the operating room table in dorsal supine position where general endotracheal tube anesthesia was obtained with ease. She was then repositioned into the dorsal lithotomy positio n with the Yellofin stirrups and prepped and draped in normal sterile fashion. Exam under anesthesia revealed a mobile midposition uterus with left adnexal mass. A Pedro catheter was placed. A specul um was then placed in the patient's vagina. An Allis clamp was used to grasp the anterior lip of the cervix and an acorn uterine manipulator was then inserted. Attention was then turned to the patient's abdomen, where a 5 mm skin incision was then made in the u mbilicus. A 5 mm laparoscope was then advanced into the patient's abdomen under direct visualization . The abdomen was then insufflated with CO2 gas until an adequate pneumoperitoneum was achieved. Th e area underneath the trocar insertion site was found to be unremarkable. The left adnexa was noted to be necrotic. A 10 mm trocar was then placed in the patient's left lower quadrant and this was don e under direct visualization. A 5 mm trocar was placed in the patient's abdomen under direct visuali zation. The left adnexa was explored and noted to be torsed and the fallopian tube and ovary were ne crotic. The LigaSure was then used to clamp the utero-ovarian ligament and it was transected. The l eft IP ligament was then clamped, cauterized, and transected, and the fallopian tube was removed. Th e left ovary was also removed. We initially had tried to explore removing the necrotic portion of th e ovary; however, majority of the ovary was and this was the patient's second ovarian torsion in the last 6 months, so decision was made to remove the entire ovary, and that was what the patient solis d requested initially anyway. The specimen was then placed in the EndoCatch bag and the EndoCatch ba g was then withdrawn through the 10 mm trocar, and the ovary and tube and cysts were removed. A norm al appendix was noted. The pelvis was irrigated. Bilateral ureteral peristalsis was noted. The adh esions between the anterior abdominal wall of the uterus were lysed and the pedicles were found to be hemostatic. The fascia from the 10 mm trocar was closed with a Wong Joseph fascial closure prieto ce with an 0 Vicryl suture. The trocars were removed from the patient after CO2 gas was expressed, a nd the skin was then closed with 4-0 Monocryl. Instruments were then removed from the patient's vagi na. No bleeding was noted. The patient was returned to the dorsal supine position where she was eas heriberto awoken from anesthesia. All the incisions were covered with Steri-Strips. Sponge count was ann ect. The patient was transported to recovery room in stable condition. /[id number]/MODL
== END | disposition home or self-care (01) ==
LOC: F3E 14:54 → UNDOADMIN 14:54 → FSGY 14:54 → EDSTATUS 15:00 → UNDODISIN 18:50
PROVIDERS: ATTEND Obstetrics & Gynecology
PROC: 0UT14ZZ Resection of Left Ovary, Percutaneous Endoscopic Approach (ICD-10-PCS; principal; 2017-08-13 15:00)
PROC: 0UT64ZZ Resection of Left Fallopian Tube, Percutaneous Endoscopic Approach (ICD-10-PCS; principal; 2017-08-13 15:00)
DX: N83.53 Torsion of ovary, ovarian pedicle and fallopian tube (principal); Z90.721 Acquired absence of ovaries, unilateral; Z85.3 Personal history of malignant neoplasm of breast; Z90.13 Acquired absence of bilateral breasts and nipples
CPT/HCPCS: J0330; J1885; J2250; J2405; J2704; J3010

== ENCOUNTER → 2018-02-16 | Outpatient (CLI) | payer OTHER | LOC: FIMAGING 09:14 | PROVIDERS: ATTEND Internal Medicine Hematology & Oncology | DX: Z13.820 Encounter for screening for osteoporosis (principal); M85.89 Other specified disorders of bone density and structure, multiple sites; C50.919 Malignant neoplasm of unspecified site of unspecified female breast; E03.9 Hypothyroidism, unspecified; Z78.0 Asymptomatic menopausal state ==

== ENCOUNTER 2018-04-11 05:50 | Day surgery (SDC) | payer OTHER ==
[2018-04-11] MEDS ORDERED: LR 1,000 ML IV ONE (06:27)
[2018-04-11] MEDS ORDERED: LIDOCAINE 1% 2 ML INJ ID PRN (06:27)
[2018-04-11] MEDS ORDERED: BUPIVACAINE 0.25% 30 ML SDV ONE (06:29)
[2018-04-11] MEDS ORDERED: SILVER NITRATE APPLICATOR 1 APPL TP ONE (06:29)
[2018-04-11] MEDS ORDERED: EPINEPHrine 1 MG/ML INJ ONE (06:30)
[2018-04-11] MEDS ORDERED: OPIUM/BELLADONNA ALKALO SUPP PR ONE (06:30)
--- NOTE | 2018-04-11 07:01 | PDANEPAE ---
ANE History of Present Illness D&C ANE Past Medical History - Cardiovascular History Hx Hypertension: No Hx Arrhythmias: No Hx Chest Pain: No Hx Coronary Artery / Peripheral Vascular Disease: No Hx CHF / Valvular Disease: No Hx Palpitations: No - Pulmonary History Hx COPD: No Hx Asthma/Reactive Airway Disease: No Hx Recent Upper Respiratory Infection: No Hx Oxygen in Use at Home: No Hx Sleep Apnea: No Sleep Apnea Screening Result - Last Documented: Negative Pulmonary History Comment: allergic reaction to cats - Neurologic History Hx Cerebrovascular Accident: No Hx Seizures: No Hx Dementia: No Neurologic History Comment: Migraines - Endocrine History Hx Diabetes: No Hypothyroid: Yes Hyperthyroid: No Endocrine History Comment: HYPOTHYROID - Renal History Hx Renal Disorders: No - Liver History Hx Hepatic Disorders: No - Neurological & Psychiatric Hx Hx Neurological and Psychiatric Disorders: Yes Neurological / Psychiatric History Comment: Anxiety - Cancer History Hx Cancer: Yes Cancer History Comment: Breast CA - Congenital Disorder History Hx Congenital Disorders: No - GI History GERD: no Hx Gastrointestinal Disorders: No - Other Health History Other Health History: STOMACH DISCOMFORT W/NSAIDS - Chronic Pain History Chronic Pain: No - Surgical History Prior Surgeries: L OVARY REMOVED. . R ovary removed. Double mastectomy. Nasal plastic sx as child ANE Review of Systems Review of Systems: - Exercise capacity METS (RN): 5 METS ANE Patient History - Allergies Allergies/Adverse Reactions: No Known Allergies Allergy (Verified 02/09/17 17:03) - Home Medications Home Medications: Cholecalciferol Vit D3 [Vitamin D3 (*)] 2,000 units PO DAILY 04/03/13 [Last Taken 04/05/18] Herbals/Supplements -Info Only 1 each PO AD 04/03/13 [Last Taken 04/05/18] Ibuprofen [Motrin (*)] 400 mg PO BID PRN 04/03/13 [Last Taken 04/05/18] Levothyroxine [Synthroid 75 mcg (*)] 75 mcg PO DAILY06 02/09/17 [Last Taken 09/18 04:15] [place]-3 Fatty Acids [Fish Oil 1000 mg (*)] 1,000 mg PO DAILY 02/09/17 [Last Taken 04/05/18] Tamoxifen Citrate 20 mg PO HS 02/09/17 [Last Taken 1 Day Ago ~04/10/18] - NPO status NPO Since - Liquids (Date): 04/11/18 NPO Since - Liquids (Time): 04:15 NPO Since - Solids (Date): 04/11/18 NPO Since - Solids (Time): 21:00 - Smoking Hx Smoking Status: Never smoked - Family Anes Hx Family Hx Anesthesia Complications: NEG ANE Labs/Vital Signs - Vital Signs Blood Pressure: 126/86 Heart Rate: 74 Respiratory Rate: 18 O2 Sat (%): 97 Height: 165.1 cm Weight: 63.503 kg ANE Physical Exam - Airway Neck exam: FROM Mallampati Score: Class 1 Mouth exam: normal dental/mouth exam - Pulmonary Pulmonary: clear to auscultation - Cardiovascular Cardiovascular: regular rate and rhythym - ASA Status ASA Status: II ANE Anesthesia Plan Anesthesia Plan: GA with mask
[2018-04-11] MEDS ORDERED: MIDAZOLAM 2 MG/2 ML VIAL IVP ONE (07:03)
[2018-04-11] MEDS ORDERED: PROPOFOL 200 MG/20 ML VIAL ONE ×2 (07:06→07:58)
[2018-04-11] MEDS ORDERED: LIDOCAINE 1% 300 MG/30 ML SDV ONE (07:07)
[2018-04-11] MEDS ORDERED: fentaNYL 100 MCG/2 ML INJ ONE (07:07)
--- NOTE | 2018-04-11 07:37 | PDGENHP ---
History & Physical Chief Complaint: Preop: HSC, D&C History of Present Illness: 47 yo on Tamoxifen therapy with AUB and US suggesting endometrial polyp. Discussed options and she'd prefer HSC w D&C. Pertinent Past, Social, Family History: Non-contributory. Relevant Physical Exam: NAD, RRR, LCTAB. Assessment & Plan Assessment: Preop: HSC, endometrial polypectomy, endometrial sampling - For DUB on Tamoxifen therapy. - Routine preop orders. - No abx needed. - Home same day, with script for [place] and home instructions. PIERO
[2018-04-11] MEDS ORDERED: NALOXONE HCL 0.4 MG/ML INJ IVP PRN (08:00)
[2018-04-11] MEDS ORDERED: KETOROLAC 30 MG/1 ML SDV ONE (08:04)
[2018-04-11] MEDS ORDERED: oxyCODONE IR 5 MG TAB PO PRN (08:06)
[2018-04-11] MEDS ORDERED: fentaNYL 100 MCG/2 ML INJ IVP PRN (08:06)
[2018-04-11] MEDS ORDERED: ACETAMINOPHEN 500 MG TAB PO PRN (08:06)
[2018-04-11] MEDS ORDERED: HYDROCODONE/APAP 5/325 TAB PO PRN (08:06)
[2018-04-11] MEDS ORDERED: ONDANSETRON 4 MG/2 ML VIAL ONE (08:08)
--- NOTE | 2018-04-11 08:21 | SUROPNOTE ---
[facility] Operative Report - Surgery Date of Operation: 04/28/18 Surgeon: Dick Aguilera Anesthesia: GET(General Endotracheal) Pre-op Diagnosis: Uterine polyp, AUB, Tamoxifen therapy Post-op Diagnosis: Same Procedure: Diagnostic hysteroscopy, endometrial polypectomy and sampling Findings: Numerous polypoid lesions arising from anterior aspect of cavity Inf/Abcess present in the surg proc area at time of surgery?: No EBL: Minimal Complications: None Specimen(s): Endometrial polyp and sampling Technique:The patient was taken to the operating room where her identity and planned procedure were confirmed during time-out. The patient was placed under anesthesia without issue. When anesthesia was found to be adequate, the patient was prepped and draped in the normal sterile fashion in dorsal lithotomy position in Pranav stirrups. No antibiotics were indicated nor given. The patient had voided just prior to OR so straight cath was not necessary. [place] speculum placed in the vagina and anterior lip of the cervix grasped with single-tooth tenaculum. A paracervical block was placed with 5cc of local anesthetic with epi at 4:00 and 8:00 locations at the cervico-vaginal junction - 10cc total. The cervix was carefully serially dilated first to allow uterine sound measurement, then to 6mm to allow TruClear hysteroscope. Dilation proceeded easily with no concerns for injury to the uterus. Scope inserted and findings noted as above. The TruClear device was used to remove any polypoid lesions and sample other surrounding endometrium. The scope was removed and the tenaculum was removed from the cervix and the tenaculum sites were found to be hemostatic. Sponge, lap, needle, and instrument counts were announced as as correct. B&O suppository placed at the conclusion of the case. I was scrubbed and present for the entire procedure.
--- NOTE | 2018-04-11 08:30 | POSTANESTH ---
Post Anesthetic Evaluation Cardiovascular Status: Normal, Stable Respiratory Status: Normal, Stable Level of Consciousness/Mental Status: Can Participate in Eval Pain Control: Adequate, Prn Tx Ordered Nausea/Vomiting Control: Adequate, Prn Tx Ordered Complications Possibly Related to Anesthesia: None Noted
[2018-04-11 09:33] VITALS: BP 104/64
== END 2018-04-11 09:38 | disposition home or self-care (01) ==
LOC: FSGY 05:50
PROVIDERS: ATTEND Obstetrics & Gynecology
PROC: 0UB98ZX Excision of Uterus, Via Natural or Artificial Opening Endoscopic, Diagnostic (ICD-10-PCS; principal; 2018-04-11 07:15)
DX: N84.0 Polyp of corpus uteri (principal); N93.9 Abnormal uterine and vaginal bleeding, unspecified; Z79.818 Long term (current) use of other agents affecting estrogen receptors and estrogen levels; Z85.3 Personal history of malignant neoplasm of breast
CPT/HCPCS: 58558; C1782; J0171; J1885; J2250; J2405; J2704; J3010